=== PATIENT | male | born 1980 | race Caucasian/White ===

== ENCOUNTER 2021-12-18 09:32 | Emergency (ER) | payer OTHER ==
[2021-12-18 11:16] LABS: RED BLOOD COUNT 4.08 M/UL (4.20-5.50); WHITE BLOOD COUNT 3.1 K/UL (4.5-11.0)
[2021-12-18 11:44] LABS: BUN/CREATININE RATIO 16 (0-10)
== END 2021-12-18 16:48 | disposition home or self-care (01) ==
LOC: ER1 09:32
PROVIDERS: Family Medicine
DX: K74.60 Unspecified cirrhosis of liver (principal); Z99.81 Dependence on supplemental oxygen; Z20.822 Contact with and (suspected) exposure to COVID-19; F17.200 Nicotine dependence, unspecified, uncomplicated; Z88.0 Allergy status to penicillin; Z88.5 Allergy status to narcotic agent
CPT/HCPCS: 36600; 71045; 80053; 80307; 81001; 82140; 82550; 82553; 82803; 83605; 83735; 83874; 83880; 84439; 84443; 84484; 85025; 96374; 96375; 99284; J1200; J1885; J2405; U0002

== ENCOUNTER 2021-12-24 12:33 | Emergency (ER) | payer OTHER ==
[2021-12-24 15:19] LABS: HEMOGLOBIN 11.5 gm/dl (14.0-17.5); RED BLOOD COUNT 4.3 M/UL (4.20-5.50)
[2021-12-24 15:51] LABS: BUN/CREATININE RATIO 13 (0-10)
== END 2021-12-24 19:48 | disposition home or self-care (01) ==
LOC: ER1 12:33
PROVIDERS: Physician Assistant
DX: R10.9 Unspecified abdominal pain (principal); R10.811 Right upper quadrant abdominal tenderness; F17.200 Nicotine dependence, unspecified, uncomplicated; R11.2 Nausea with vomiting, unspecified
CPT/HCPCS: 80053; 81001; 85025; 99284